=== PATIENT | male | born 1960 ===

== ENCOUNTER 2019-01-18 10:11 | Inpatient (IN) | payer OTHER ==
[2019-01-18] MEDS ORDERED: ACETAMINOPHEN 325 MG TAB PO PRN (12:33)
[2019-01-18 13:13] LABS: PLATELET COUNT 194 10^3/uL (150-400)
[2019-01-18 13:24] LABS: INR 1.09 (0.83-1.16); PROTIME(PATIENT) 13.7 SEC (12.0-15.0)
--- NOTE | 2019-01-18 13:37 | PDMN ---
Medical Necessity Medical necessity: MCG M505 V-Tac A-2 days sotalol loading
[2019-01-18] MEDS ORDERED: D50W 25 GM/50 ML SYR IVP PRN (13:50)
--- NOTE | 2019-01-18 14:30 | PDCARPN ---
Cardiology Progress Note Chief Complaint: Patient reports he is here for sotalol loading. Has no complaints. Assessment/Plan: Assessment: 58-year-old male with history of CAD with previous CABG (2009), chronic systolic heart failure, ischemic cardiomyopathy, left bundle branch block, recent dual chamber ICD implantation (was plan for by the, but poor targets, and planned staged surgical LV lead implantation), hypothyroidism, noninsulin dependent diabetes. Patient with recent device interrogation showing several episodes of nonsustained VT as well as a single sustained monomorphic episode VT which was successfully treated with anti tachycardia pacing. Admitted today for sotalol loading. He currently reports no chest pain, pressure, or symptoms suggesting of ischemia. Reports no symptoms suggesting worsening heart failure. Denies of any recent palpitations, but noted another single episode of nonsustained VT off of device interrogation remote monitoring yesterday. Plan: 1. Ventricular tachycardia: Planned for sotalol loading, pre dosing laboratories done, noting potassium 4.5, magnesium 1.9. Electrocardiogram today showing a sense with V paced rhythm, QTC 467 milliseconds, with JT of 239. Will plan on starting him on sotalol at 120 mg p.o. Twice daily, with plans of 2 hr post dosing electrocardiograms. 1st dose scheduled tonight at 9: 00 p.m.. He will need to be monitor for the 1st 4 doses. Patient has AICD. 2. CAD: Reports no chest pain, pressure symptoms suggesting of ischemia. Patient has been resumed on home anti-platelet therapy of aspirin and clopidogrel. 3. Ischemic cardiomyopathy: Appears euvolemic, continue on home dosages of carvedilol, (discussed with Dr. Amador, for time being, will continue on both carvedilol sotalol) and Entresto. 4. NIDDM: Resumed home diabetic regime. Plan the fingersticks a.c. And hs. P.r.n. D50 ordered. 5. Hypothyroidism: Continue on home dose of Synthroid. 6. DVT prophylaxis: Patient is up and walking the unit, will order Vitaliy hoses 7. Code status: Patient is a full code. Due to the requiring needed for sotalol loading, patient will be planned be inpatient for greater than 2 midnights. 01/18/19 14:28 Subjective: Patient reports no chest pain, pressure, shortness of breath, lightheadedness, near-syncope or syncopal events. Denies of any palpitations, are therapeutic shocks from his AICD. Reviewed/Discussed With: other (Dr Amador) Objective: Vital Signs (8 Hrs) Temp Pulse Resp BP Pulse Ox 01/18/19 11:33 36.9 C 91 18 116/85 H 96 Intake/Output (24 Hrs) 01/17/19 01/18/19 01/19/19 05:59 05:59 05:59 Other: Weight 62.4 kg Result Diagrams: 01/18/19 13:00 01/19/19 03:24 - Physical Exam Constitutional: WDWN, no apparent distress Ears, Nose, Mouth, Throat: moist mucous membranes Cardiovascular: regular rate and rhythm, systolic murmur (1/6 left sternal border), pulses symmetric bilat, No jugular vein distention, No carotid bruit Peripheral Pulses: 2+: carotid (R), carotid (L), dorsalis-pedis (R), dorsalis- pedis (L) Respiratory: clear to auscultate bilat, no crackles, no wheezes Gastrointestinal: normoactive bowel sounds, no tenderness, no masses Skin: warm, no edema Neurologic: AAOx3 Psychiatric: cooperative, interactive, following commands ICD10 Worksheet Patient Problems: Problems Problem Status Onset Ventricular tachycardia Acute - ICD10 Problem Qualifiers (1) Ventricular tachycardia
[2019-01-18] MEDS: CARVEDILOL 6.25 MG TAB PO SCH (21:01)
[2019-01-18] MEDS: metFORMIN HCL 500 MG TAB PO SCH (21:02)
[2019-01-18] MEDS: SACUBITRIL/VALSARTAN 49/51MG 1 EA TAB PO SCH (21:02)
[2019-01-18] MEDS: SOTALOL HCL 80 MG TAB PO SCH (21:02)
[2019-01-18] MEDS: EZETIMIBE 10 MG TAB PO SCH (21:52)
[2019-01-18] MEDS: ATORVASTATIN CALCIUM 40 MG TAB PO SCH (21:52)
[2019-01-19 04:47] LABS: INR 1.14 (0.83-1.16); PROTIME(PATIENT) 14.1 SEC (12.0-15.0)
[2019-01-19] MEDS: LEVOTHYROXINE 25 MCG TAB PO SCH (05:59)
[2019-01-19] MEDS: ASPIRIN 81 MG CHEWABLE TAB PO SCH (08:04)
[2019-01-19] MEDS: CARVEDILOL 6.25 MG TAB PO SCH ×2 (08:04→21:10)
[2019-01-19] MEDS: CLOPIDOGREL BISULFATE 75 MG TAB PO SCH (08:04)
[2019-01-19] MEDS: SACUBITRIL/VALSARTAN 49/51MG 1 EA TAB PO SCH ×2 (08:04→21:06)
[2019-01-19] MEDS: CHOLECALCIFEROL VIT D3 2,000 UNITS TAB/CAP PO SCH (08:05)
[2019-01-19] MEDS: metFORMIN HCL 500 MG TAB PO SCH ×2 (08:05→21:09)
[2019-01-19] MEDS: SOTALOL HCL 80 MG TAB PO SCH ×2 (08:05→21:10)
[2019-01-19] MEDS: Empagliflozin [Jardiance] 25 MG PO SCH (08:13)
--- NOTE | 2019-01-19 11:26 | PDCARPN ---
Cardiology Progress Note Chief Complaint: Patient reports no complaints. Assessment/Plan: Assessment: 58-year-old male with history of CAD with previous CABG (2009), chronic systolic heart failure, ischemic cardiomyopathy, left bundle branch block, recent dual chamber ICD implantation (was plan for by the, but poor targets, and planned staged surgical LV lead implantation), hypothyroidism, noninsulin dependent diabetes. Patient with recent device interrogation showing several episodes of nonsustained VT as well as a single sustained monomorphic episode VT which was successfully treated with anti tachycardia pacing. Admitted today for sotalol loading. 01/19/2019: Patient reporting no adverse reaction with 1st dose of sotalol. Denies of any palpitations or lightheadedness. January 18 11:00 p.m. Electrocardiogram evaluated by Dr. Amador reviewed electrocardiogram, with evaluation QTC of 447 milliseconds. Continues cardiac monitoring showing a sense with V paced rhythm, no malignant arrhythmias, or pauses noted. Laboratories today showing potassium at 5.1, magnesium 1.9, BUN 16, creatinine point. Plan: 1. Ventricular tachycardia: Continue on current dose of sotalol loading with 2 hr post dosing electrocardiograms. Monitor daily electrolyte renal function. Continues cardiac monitoring. Patient does have an AICD. 2. CAD: Reports no chest pain, pressure symptoms suggesting of ischemia. Patient has been resumed on home anti-platelet therapy of aspirin and clopidogrel. 3. Ischemic cardiomyopathy: Appears euvolemic, continue on home dosages of carvedilol, (discussed with Dr. Amador, for time being, will continue on both carvedilol sotalol) and Entresto. 4. NIDDM: Resumed home diabetic regime. Plan the fingersticks a.c. And hs. P.r.n. D50 ordered. 5. Hypothyroidism: Continue on home dose of Synthroid. 6. DVT prophylaxis: Patient is up and walking the unit, will order Vitaliy hoses 7. Code status: Patient is a full code. 01/19/19 11:24 Subjective: Patient reports no chest pain or pressure. Denies of any palpitations. Reports no shortness of breath, lightheadedness, near-syncope or syncopal events. Reviewed/Discussed With: other (Dr Amador) Objective: Vital Signs (8 Hrs) Temp Pulse Resp BP Pulse Ox 01/19/19 07:03 36.7 C 80 16 103/66 96 01/19/19 03:24 36.7 C 85 12 102/71 95 Intake/Output (24 Hrs) 01/18/19 01/19/19 01/20/19 05:59 05:59 05:59 Intake Total 1275 Output Total 285 Balance 990 Intake: Oral (ml) 1275 Output: Urine (ml) 285 Urinal 285 Other: Weight 62.4 kg Number of Voids Toilet 2 Result Diagrams: 01/18/19 13:00 01/19/19 03:24 - Physical Exam Constitutional: WDWN, healthy appearing Cardiovascular: regular rate and rhythm, no murmurs, no rubs, pulses symmetric bilat, No jugular vein distention Peripheral Pulses: 1+: dorsalis-pedis (R), dorsalis-pedis (L), 2+: carotid (R), carotid (L) Respiratory: clear to auscultate bilat, no crackles, no wheezes Gastrointestinal: normoactive bowel sounds Skin: warm, no edema Neurologic: AAOx3 Psychiatric: cooperative, interactive, following commands ICD10 Worksheet Patient Problems: Problems Problem Status Onset Ventricular tachycardia Acute - ICD10 Problem Qualifiers (1) Ventricular tachycardia
--- NOTE | 2019-01-19 13:09 | ASMTCASEMG ---
Living Arrangements What is your living Answers: With Spouse arrangement? Who do you live with? Type Of Residence What kind of residence do Answers: House you live in? Discharge Plan Comments Coordination Status Comments Notes: Pt admitted for sotalol load. He lives in [facility] with his Alem. No CM needs identified. CM will be available should needs arise. CM D/C plan: Independent to home Date Signed: 01/19/2019 01:05 PM Electronically Signed By:Raysa Matson
[2019-01-19] MEDS: ATORVASTATIN CALCIUM 40 MG TAB PO SCH (21:06)
[2019-01-19] MEDS: EZETIMIBE 10 MG TAB PO SCH (21:09)
[2019-01-20] MEDS: CARVEDILOL 6.25 MG TAB PO SCH (08:14)
[2019-01-20] MEDS: SOTALOL HCL 80 MG TAB PO SCH (08:14)
[2019-01-20] MEDS: ASPIRIN 81 MG CHEWABLE TAB PO SCH (08:14)
[2019-01-20] MEDS: CLOPIDOGREL BISULFATE 75 MG TAB PO SCH (08:14)
[2019-01-20] MEDS: LEVOTHYROXINE 25 MCG TAB PO SCH (08:14)
[2019-01-20] MEDS: metFORMIN HCL 500 MG TAB PO SCH (08:14)
[2019-01-20] MEDS: CHOLECALCIFEROL VIT D3 2,000 UNITS TAB/CAP PO SCH (08:14)
[2019-01-20] MEDS: SACUBITRIL/VALSARTAN 49/51MG 1 EA TAB PO SCH (08:14)
[2019-01-20] MEDS: Empagliflozin [Jardiance] 25 MG PO SCH (08:18)
[2019-01-20 12:16] VITALS: BP 119/80
--- NOTE | 2019-01-20 12:53 | GDS ---
[f rep st] DISCHARGE SUMMARY DISCHARGE DIAGNOSES: 1. Ventricular tachycardia, status post sotalol loading. 2. History of coronary artery disease with previous coronary artery bypass graft. 3. Ischemic cardiomyopathy. 4. Chronic systolic heart failure. 5. Recent dual-chamber ICD implantation. HOSPITAL COURSE: For detailed H and P, please see prior dictation. Briefly, the patient is a 58-year-old male with a history of coronary artery disease status post CABG, chronic systolic heart failure, ischemic cardiomyopathy, recent dual-chamber ICD implantation, who presented to our office with ventricular tachycardia. This was seen on ICD interrogation and was terminated with antitachycardia pacing. Ultimately, the decision was made to admit the patient for elective sotalol loading. He is currently on 120 mg of sotalol b.i.d. and tolerating the medication well. He remained in normal sinus rhythm with intermittent pacing on telemetry. The day of discharge, his EKG was assessed by Dr. Leonid Amador, who felt like his QTc was within normal limits and therefore, he was to continue the medication. The day of discharge, he complained of mild lightheadedness with standing. His blood pressure was low at 93/68, but has normalized since then. PHYSICAL EXAMINATION: GENERAL: The patient appears in no acute distress. VITALS: Blood pressure 119/80, heart rate 74, oxygen saturation of 94% on room air, afebrile. LUNGS: Clear to auscultation. No wheezes, rhonchi, or crackles auscultated. CARDIAC: Regular rate and rhythm, without any significant murmurs, rubs, or gallops appreciated. DISCHARGE MEDICATIONS: New medications: Sotalol 120 mg b.i.d.; he will continue. Metformin 1000 mg b.i.d. Entresto b.i.d. Vitamin D3 daily. Coreg 12.5 mg b.i.d. Aspirin 81 mg daily. Synthroid 25 mcg daily. Plavix 75 mg daily. Jardiance 25 mg daily. Ozempic 0.5 mg injection every 7 days. Lipitor 80 mg daily. Zetia 10 mg daily. PLAN: The patient is currently stable and ready for discharge home. He is scheduled to follow up with Dr. Amador on February 16, at 9:30 a.m. Greater than 30 minutes was spent coordinating the patient's care. ADDENDUM Quinten Amador MD - patient seen and discussed with Ms Vance. Relevant portion of history/physical/ROS/data review personally performed. Uneventful sotalol load; followup with me in 1 month. /[id number]/MODL MTDD
--- NOTE | 2019-01-20 16:34 | ASDISCHSUM ---
Discharge Information Plan Status:Home with No Needs Medically Cleared to Leave: Discharge Date:01/20/2019 12:54 PM CM D/C Disposition: ADT D/C Disposition:Home, Routine, Self-Care Projected Discharge Date:01/20/2019 12:54 PM Transportation at D/C: Discharge Delay Reason: Follow-Up Date:01/20/2019 12:54 PM Discharge Slot: Final Diagnosis: Placement Information Patient Contact Information Contact Name:SÁNCHEZ Relationship: Address: Home Phone: City: [facility] Phone: [facility] Code: Email: Financial Information Financial Class:HMO and PPO Plans Primary Plan Desc:[employer] GREG LEVY Primary Plan Number:[id number] Secondary Plan Desc: Secondary Plan Number: Assessment Information LACE LACE Length of stay for Answers: 1 day current admission Acuity / Level of Answers: Yes Care: Did the patient have an inpatient admission? Comorbidities - select Answers: Congestive heart failure all that apply Diabetes (uncontrolled or controlled) Previous myocardial infarction # of Emergency department Answers: 0 visits in the last 6 months Score: 8 Date Signed: 01/20/2019 04:32 PM Electronically Signed By:Raysa Matson [facility] Initial CM Assessment Living Arrangements What is your living Answers: With Spouse arrangement? Who do you live with? Type Of Residence What kind of residence do Answers: House you live in? Discharge Plan Comments Coordination Status Comments Notes: Pt admitted for sotalol load. He lives in [facility] with his Alem. No CM needs identified. CM will be available should needs arise. CM D/C plan: Independent to home Date Signed: 01/19/2019 01:05 PM Electronically Signed By:Raysa Milton.SALINA Case Management Discharge Plan Note Case Management Discharge Discharge Order Complete? Answers: Yes Patient to Obtain Answers: Independently Medications Transportation Arranged Answers: Family/Friends Family Notified Answers: Yes Notes: Alem Discharge Comments Notes: Pt is being D/Cd independently to home today. Alem will drive him home. No CM needs identified. Date Signed: 01/20/2019 04:33 PM Electronically Signed By:Raysa Milton.SALINA Intervention Information
--- NOTE | 2019-01-21 11:49 | CPEKG ---
Test Reason : OPEN Blood Pressure : / mmHG Vent. Rate : 084 BPM Atrial Rate : 083 BPM P-R Int : 198 ms QRS Dur : 156 ms QT Int : 395 ms P-R-T Axes : 057 259 086 degrees QTc Int : 467 ms Atrial-sensed ventricular-paced rhythm Confirmed by Sebas Renee ([id number]) on 01/21/2019 11:48:53 AM Referred By: Leonid Amador Confirmed By:Sebas Renee
--- NOTE | 2019-01-21 11:55 | CPEKG ---
Test Reason : OPEN Blood Pressure : / mmHG Vent. Rate : 080 BPM Atrial Rate : 080 BPM P-R Int : 235 ms QRS Dur : 158 ms QT Int : 442 ms P-R-T Axes : 079 160 -70 degrees QTc Int : 510 ms Atrial-sensed ventricular-paced rhythm Confirmed by Sebas Renee ([id number]) on 01/21/2019 11:54:44 AM Referred By: Leonid Amador Confirmed By:Sebas Renee
[2019-01-24] MEDS ORDERED: OZEMPIC 0.5 MG SC SCH (09:00)
== END 2019-01-20 12:54 | disposition home or self-care (01) | DRG 310 ==
LOC: F2W 11:09 → EDBD 11:09 → OBSVTOIN 11:09
PROVIDERS: ADMIT Internal Medicine Cardiovascular Disease; ATTEND Internal Medicine Cardiovascular Disease
PROC: 3E033RZ Introduction of Antiarrhythmic into Peripheral Vein, Percutaneous Approach (ICD-10-PCS; principal; 2019-01-18)
DX: I47.2 Ventricular tachycardia (principal); I44.7 Left bundle-branch block, unspecified; I25.10 Atherosclerotic heart disease of native coronary artery without angina pectoris; E03.9 Hypothyroidism, unspecified; E11.9 Type 2 diabetes mellitus without complications; Z95.1 Presence of aortocoronary bypass graft; Z95.0 Presence of cardiac pacemaker